=== PATIENT | female | born 1960 | race Asian ===

== ENCOUNTER → 2024-10-23 | Outpatient (CLI) | payer MEDICARE, BC, SELFPAY ==
--- NOTE | 2024-10-23 15:15 | XR_ITS ---
MRI shoulder, right, without contrast. Date and time: November 02, 2024 1539 hours INDICATIONS: Right shoulder pain weakness stiffness joint clicking 3 months Technique: Multiple axial, sagittal and coronal sections of the shoulder have been obtained. Siemens high-resolution 1.5 Candy MRI scanner is utilized. Axial fat-suppressed sections, TR 2350, TE 18 T2-weighted coronal fat-saturated images, TR 3500, TE 7100 T1-weighted coronal images, TR 500, TE 15 T2-weighted sagittal fat-saturated images, TR 3500, TE 57 T1-weighted sagittal sections, TR 504, TE 13. Findings: Supraspinatus tendon insertion is abnormal, full-thickness tear, at least 20 mm. Infraspinatus tendon insertion is suspicious for partial thickness tear. Subscapularis insertion is intact. Subscapularis bursa is not seen. Long head of the biceps is in the bicipital groove. No definite tear of the biceps superior labral anchor is seen. Retraction of the musculotendinous junction of the rotator cuff is mild. Tendinosis pattern is moderate. Distance between the acromium and humeral head is 6.5 mm Atrophy of the supraspinatus muscle is moderate. Atrophy of the infraspinatus muscle is mild. Sagittal sections demonstrate a horizontal acromion. Acromioclavicular joint demonstrates moderate osteoarthritis. Osacromiale is not identified. Suspicious for small posterior labral tears. Bony glenoid fossa on the sagittal sections does not demonstrate osseous defect. Occult fracture or area of avascular necrosis is not seen. Acromioclavicular joint separation is not visible. Defect in the posterolateral margin of the humeral head is not seen Impression: 20 mm full-thickness tear supraspinatous Suspicious for small posterior labral tears
== END | disposition home or self-care (01) ==
LOC: SMRI 14:51
PROVIDERS: PCP Internal Medicine; Referring Provider Orthopaedic Surgery; Visit Provider Orthopaedic Surgery
DX: M75.101 Unspecified rotator cuff tear or rupture of right shoulder, not specified as traumatic (principal)
CPT/HCPCS: 73221

== ENCOUNTER → 2024-11-17 | Outpatient (CLI) | payer MEDICARE, BC, SELFPAY ==
--- NOTE | 2024-11-17 15:30 | XR_ITS ---
Examination: Thyroid sonography complete TECHNIQUE: Grayscale sonographic images thyroid lobes are carful analysis Exam date and time: November 17, 2024 1539 hours INDICATIONS: Thyroid sonogram December 09, 2023 poor right thyroid nodule 9 mm Isthmus nodule 4 mm 9 mm 6 mm mid pole left thyroid nodule 9 mm lower pole nodule 5 mm 7 mm FINDINGS: Right thyroid 4.4 cm Upper pole nodules 11 x 8 mm, 11 x 9 mm Isthmus nodules 4 x 6 mm, 6 x 6 mm, 7 x 7 mm Left thyroid 3.7 cm Midpole nodule 3 x 4 mm Lower pole nodule 8 x 8 mm IMPRESSION: Multiple thyroid nodules as above
== END | disposition home or self-care (01) ==
LOC: CDIM 15:10
PROVIDERS: PCP Internal Medicine; Referring Provider Internal Medicine Endocrinology, Diabetes & Metabolism; Visit Provider Internal Medicine Endocrinology, Diabetes & Metabolism
DX: E04.2 Nontoxic multinodular goiter (principal)
CPT/HCPCS: 76536

== ENCOUNTER → 2024-11-20 | Outpatient (CLI) | payer MEDICARE, BC, SELFPAY ==
[2024-11-20 09:35] LABS: Basophils # (Auto) 0.1 Thou/mm3 (0.0-0.2); Basophils % (Auto) 2 % (0-2.5); Eosinophils # (Auto) 0.3 Thou/mm3 (0.0-0.5); Eosinophils % (Auto) 6 % (0-10); Hematocrit 36.4 % (36.0-46.0); Hemoglobin 11.9 g/dL (12.0-16.0); Immature Granulocytes % (Auto) 0 % (0-0); Immature Granulocytes Auto 0.02 Thou/mm3 (0.00-0.00); Lymphocytes # (Auto) 2.1 Thou/mm3 (1.0-4.8); Lymphocytes % (Auto) 35 % (10-50); Mean Corpuscular HGB Conc 32.7 g/dl (31.0-37.0); Mean Corpuscular Hemoglobin 29.5 pg (25.0-35.0); Mean Corpuscular Volume 90 fL (80-100); Monocytes # (Auto) 0.4 Thou/mm3 (0.0-0.8); Monocytes % (Auto) 7 % (0-12); Neutrophils # (Auto) 2.9 Thou/mm3 (1.8-7.7); Neutrophils % (Auto) 50 % (37-80); Nucleated Red Blood Cell % 0 /100 WBC (0); Platelet Count 379 Thou/mm3 (140-440); RDW Standard Deviation 45.9 fL (36.4-46.3); Red Blood Count 4.03 Miln/mm3 (4.00-5.20); White Blood Count 5.8 Thou/mm3 (3.6-11.0)
[2024-11-20 09:39] LABS: Glucose Estimated Average 126 mg/dL (80-131)
[2024-11-20 09:48] LABS: Creatinine MALB Rnd Ur 141 mg/dL (30-125); Microalbumin Creat Ratio 69 mg/gCrea (<30); Microalbumin, Random Urine 97 mg/L (0-300)
[2024-11-20 09:57] LABS: Alanine Aminotransferase 47 U/L (10-49); Albumin, Serum 4.1 gm/dL (3.4-4.8); Albumin/Globulin Ratio 1.7 (1.2-2.2); Alkaline Phosphatase 63 U/L (46-116); Anion Gap 9 (7-16); Aspartate Amino Transferase 26 U/L (0-34); BUN/Creatinine Ratio 16 Ratio (12-20); Bilirubin,Total 0.5 mg/dL (0.3-1.2); Blood Urea Nitrogen 13 mg/dL (9-23); Calcium 9.8 mg/dL (8.3-10.6); Calcium (Corrected) 9.8 mg/dL (8.5-10.1); Carbon Dioxide 28.3 mMol/L (20.0-31.0); Chloride 109 mMol/L (98-107); Creatinine (Component) 0.8 mg/dL (0.6-1.3); Free T4 (Free Thyroxine) 1.34 ng/dL (0.89-1.76); Globulin 2.4 gm/dL (2.3-3.5); Glucose 94 mg/dL (74-106); Osmolality,Calculated 290 (275-295); Potassium 4.8 mMol/L (3.4-5.1); Sodium 146 mMol/L (136-145); Thyroid Stimulating Hormone 2.75 uIU/mL (0.55-4.78); Total Protein 6.5 gm/dL (5.7-8.2); eGFR > 60 See Note
[2024-11-20 10:11] LABS: Cardiac Risk Estimate 1.7 RATIO (3.7-5.6); Cholesterol 96 mg/dL (132-200); HDL Cholesterol 56 mg/dL (40-60); LDL Cholesterol,Calculated 16 mg/dL (0-130); Triglycerides 120 mg/dL (30-150)
== END | disposition home or self-care (01) ==
LOC: COPL 08:05
PROVIDERS: PCP Internal Medicine; Referring Provider Internal Medicine Endocrinology, Diabetes & Metabolism; Visit Provider Internal Medicine Endocrinology, Diabetes & Metabolism
DX: E11.9 Type 2 diabetes mellitus without complications (principal); E06.3 Autoimmune thyroiditis
CPT/HCPCS: 36415; 80053; 80061; 82043; 82570; 83036; 84439; 84443; 85025

== ENCOUNTER 2024-11-24 05:35 | Day surgery (SDC) | payer MEDICARE, BC, SELFPAY ==
--- NOTE | 2024-11-22 17:32 | ESHP_ITS ---
RE: GABI CARDOZO : 1960 DATE OF ADMISSION: 11/24/2024 HISTORY OF PRESENT ILLNESS: This is a 64-year-old with a persistent left adnexal mass with benign features and ovarian malignancy risk MURRAY of 1.1 indicating low-risk for malignancy, who presents for removal of ovarian cyst and ovary due to persistent left lower quadrant pain. MEDICATIONS: See list. PAST MEDICAL HISTORY: Coronary artery disease, asthma, hypothyroidism, hypertension, hyperlipidemia, myocardial infarction, and coronary stent placement x3. FAMILY HISTORY: Diabetes, hypertension, and heart disease. PAST SURGICAL HISTORY: delivery in 2000, cholecystectomy, colonoscopy, and laparotomy with uterine myomectomy. PHYSICAL EXAMINATION: VITAL SIGNS: Blood pressure is 160/88, heart rate 72, respirations 18, temperature is 98.6, and weight 127 pounds. HEENT: Oropharynx and sclerae are clear. LUNGS: Clear to auscultation bilaterally. HEART: Regular rate and rhythm. ABDOMEN: Old Pfannenstiel scar noted. EXTREMITIES: Nontender. SKIN: No gross rashes or lesions. NEUROLOGIC: No focal deficits. ASSESSMENT: Left adnexal mass. PLAN: Diagnostic laparoscopy, left oophorectomy, and possible laparotomy. Informed consent was obtained. The patient was made aware of the risks, complications, alternatives, and benefits of the proposed procedure and she agrees. She is aware of the risk of injury to bowel, bladder, ureters, uterus, adjacent organs, pulmonary embolism, deep vein thrombosis, injury to the vessels, the abdominal wall hematoma, abscess, wound infection, wound dehiscence, pelvic infection, reoperation to repair injury to internal organs, anesthesia complications, the possibility that laparotomy needs to be performed to complete the procedures or controlled bleeding, and the possibility of the procedure is not able to be completed due to severe adhesions or technical difficulties. DT: 15:59:45 TT: 17:30:00 Ref: [id number] - TID: [id number]
--- NOTE | 2024-11-23 06:55 | EKG_ITS ---
[facility] Test Date: 2024-11-23 Pat Name: GABI CARDOZO Department: Room: - Gender: Female Area Relief Pilot: EDOUARD : 1960 Requested By: Binh Munoz Order Number: [id number] Reading MD: Binh Munoz Measurements Intervals [place] Rate: 63 P: 36 OR: 161 QRS: 45 QRSD: 87 T: 72 QT: 409 QTc: 421 Interpretive Statements SINUS RHYTHM INDETERMINATE AXIS ATYPICAL ECG Compared to ECG 07/17/2023 16:06:05 Indeterminate axis now present /store/S0/[id number].pdf
[2024-11-23 09:14] VITALS: BMI 26.1
[2024-11-23 10:54] LABS: Basophils # (Auto) 0.1 Thou/mm3 (0.0-0.2); Basophils % (Auto) 2 % (0-2.5); Eosinophils # (Auto) 0.3 Thou/mm3 (0.0-0.5); Eosinophils % (Auto) 5 % (0-10); Hematocrit 36.6 % (36.0-46.0); Immature Granulocytes % (Auto) 0 % (0-0); Immature Granulocytes Auto 0.02 Thou/mm3 (0.00-0.00); Lymphocytes # (Auto) 1.9 Thou/mm3 (1.0-4.8); Lymphocytes % (Auto) 31 % (10-50); Mean Corpuscular HGB Conc 32.8 g/dl (31.0-37.0); Mean Corpuscular Hemoglobin 29.3 pg (25.0-35.0); Mean Corpuscular Volume 90 fL (80-100); Monocytes # (Auto) 0.5 Thou/mm3 (0.0-0.8); Monocytes % (Auto) 8 % (0-12); Neutrophils # (Auto) 3.4 Thou/mm3 (1.8-7.7); Neutrophils % (Auto) 55 % (37-80); Nucleated Red Blood Cell % 0 /100 WBC (0); Platelet Count 366 Thou/mm3 (140-440); RDW Standard Deviation 45.4 fL (36.4-46.3); Red Blood Count 4.09 Miln/mm3 (4.00-5.20); White Blood Count 6.2 Thou/mm3 (3.6-11.0)
[2024-11-23 11:01] LABS: INR 0.9 (0.9-1.3); Partial Thromboplastin Time 27.2 Seconds (22.0-36.0); Prothrombin Time 10.3 Seconds (9.0-12.2)
[2024-11-23 11:34] LABS: Alanine Aminotransferase 39 U/L (10-49); Albumin, Serum 4.2 gm/dL (3.4-4.8); Albumin/Globulin Ratio 1.6 (1.2-2.2); Alkaline Phosphatase 62 U/L (46-116); Anion Gap 9 (7-16); Aspartate Amino Transferase 24 U/L (0-34); BUN/Creatinine Ratio 15 Ratio (12-20); Bilirubin,Total 0.6 mg/dL (0.3-1.2); Blood Urea Nitrogen 12 mg/dL (9-23); Calcium 9.2 mg/dL (8.3-10.6); Calcium (Corrected) 9.2 mg/dL (8.5-10.1); Carbon Dioxide 26.8 mMol/L (20.0-31.0); Chloride 106 mMol/L (98-107); Creatinine (Component) 0.8 mg/dL (0.6-1.3); Estimated Creatinine Clearance 53.9 mL/min (>60); Globulin 2.6 gm/dL (2.3-3.5); Glucose 86 mg/dL (74-106); Osmolality,Calculated 281 (275-295); Potassium 4.7 mMol/L (3.4-5.1); Sodium 142 mMol/L (136-145); Total Protein 6.8 gm/dL (5.7-8.2); eGFR > 60 See Note
--- NOTE | 2024-11-23 15:36 | SUR.PREOP ---
Cardiac history and records reviewed with Dr Munoz.
[2024-11-24] VITALS (8 sets, daily range): BP systolic 80–163; BP diastolic 43–95; PULSE 65–79; RESP 13–20; TEMP 36.2–36.9; O2SAT 98–100; BMI 26.8
--- NOTE | 2024-11-24 07:15 | CHAP ---
Patient seemed somewhat apprehensive. I spoke with her giving words of encouragement and a prayer.
--- NOTE | 2024-11-24 08:27 | ESOP_ITS ---
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 She is prepped and draped in you sterile fashion. A timeout was performed. A bivalve speculum was placed in the vagina single-tooth tenaculum was used to grasp the antilipid the cervix. An acorn uterine manipulator was placed. Attention was then turned to the abdomen where the physician regowned and gloved and a 5 mm incision was made in the umbilical fold. With tenting up of the abdomen and a Veress needle was inserted. Saline confirmed intra-abdominal placement. An artificial pneumoperitoneum was created to 12 mm millimeters of mercury. The Veress needle was removed. A 5 mm trocar was inserted with tenting up to the abdomen. The laparoscope connected to the video camera was then utilized to visualize the pelvis. We were unable to visualize the pelvis despite uterine manipulation and Trendelenburg. A second incision was made in the midline. Through this 5 mm incision a 5 mm trocar was inserted under direct visualization of the laparoscope. Using the uterine manipulator and Rodriguez Geck grasper the left adnexal cyst was visualized. Due to its firm adherence to the left pelvic sidewall and uterus as well as the severe bowel adhesions no further surgery was attempted. Using the Abad-Elizabeth needle the suprapubic fascia was closed with 0 Vicryl. Both incisions were infiltrated with Marcaine quarter percent plain. Carbon oxide was removed from the peritoneal cavity. The incisions were closed with 4-0 Monocryl and covered with Dermabond. Attention was then turned to the vagina where the uterine manipulator was removed. The cervix was found to be hemostatic. She was reversed from general anesthesia in the supine position. She was transferred to the recovery room in stable condition. She tolerated the procedure well. Counts were correct. I discussed with her son-in-law the intraoperative findings, the expectation for recovery, and all questions were answered. Plan is to refer as an outpatient to a tertiary care center for higher level of care and consultation with a gynecologic oncologist. I explained to him that nothing was found intraoperatively that is consistent with malignancy and her tumor markers are low risk for malignancy. Specimen: none Estimated blood loss (ml): 5 Findings: A 5 x 6 cm left adnexal cyst adherent to the left pelvic sidewall and uterus. Irregular uterine contour consistent with intramural leiomyomas Adhesions of the rectosigmoid colon to the anterior abdominal wall Adhesions of the appendix to the right adnexa Nonvisualization of the right ovary No ascites No peritoneal lesions. Complications: none Surgical staff Operation Date: 11/24/24 07:30 Case Staff Anesthesiologist: Don Beaver RN First Assistant: Vika Manning Diagnosis Problem List Completed Was Problem List Reviewed/Reconciled?: Yes
--- NOTE | 2024-11-24 08:34 | SUR.PHASEI ---
0834: Pt wakes to name then drifts back to sleep, pt. hypotensive, notified MD Beaver and he stated he was ok with the BP no new orders given, breathing unlabored, x2 dermabond sites to ABD CDI, no active bleed noted, peripad in place with scant amount of blood, report received from Ivanna RO and MD Beaver.
--- NOTE | 2024-11-24 09:34 | SUR.PHASEII ---
0934: Pt. AAOx4, vitals stable, breathing unlabored, no complaint of pain or nausea, x2 dermabond sites to ABD CDI, peripad in place with same amount of blood as arrival to PACU, pt. tolerated sips of water well, pt. ambulated to wheelchair with steady gait and no assist, no complications. Gave discharge instructions to the pt. and her ride, both verbalized understanding and had no further questions. Pt. left with all personal belongings.
== END 2024-11-24 09:34 | disposition home or self-care (01) ==
PROVIDERS: PCP Internal Medicine; Referring Provider Specialist; Visit Provider Specialist
PROC: (CPT 58720; principal; 2024-11-24 07:30)
DX: R19.09 Other intra-abdominal and pelvic swelling, mass and lump (principal); E03.9 Hypothyroidism, unspecified; E78.5 Hyperlipidemia, unspecified; I10 Essential (primary) hypertension; I25.10 Atherosclerotic heart disease of native coronary artery without angina pectoris; I25.2 Old myocardial infarction; J45.909 Unspecified asthma, uncomplicated; N73.6 Female pelvic peritoneal adhesions (postinfective); Z01.810 Encounter for preprocedural cardiovascular examination
CPT/HCPCS: 49320; 36415; 80053; 85025; 85610; 85730; 86850; 86900; 86901; 93005; A4217; A4649; J0690; J1100; J1720; J1885; J2250; J2405; J2704; J3010; J3490; J0665